=== PATIENT | male | born 1990 | race American Indian/Alaskan Native ===

== ENCOUNTER 2017-09-18 01:24 | Emergency (ER) | payer OTHER ==
[2017-09-18] MEDS ORDERED: GEODON IM ONE (01:45)
[2017-09-18] MEDS ORDERED: GEODON IM PRN (01:56)
[2017-09-18 02:28] LABS: Bilirubin,Urine NEG (Negative); Blood,Urine NEG (Negative); Color,Urine Yellow (Yellow); Hyaline Casts,Urine 3 /LPF; Mucus,Urine FEW /HPF
[2017-09-18 02:30] LABS: Benzodiazepines Screen,Urine PRESUMPTIVE NEGATIVE; Cannabinoid Screen,Urine PRESUMPTIVE NEGATIVE; Cocaine Screen,Urine PRESUMPTIVE NEGATIVE; Methadone Screen,Urine PRESUMPTIVE NEGATIVE; Opiate Screen,Urine PRESUMPTIVE NEGATIVE
[2017-09-18 02:30] LABS: Basophils % (Auto) 0.5 % (0.0-1.8); Eosinophils # (Auto) 0.1 K/mm3 (0.0-0.4); Eosinophils % (Auto) 2.6 % (0.0-4.3); Hematocrit 38.1 % (35.5-45.6); Hemoglobin 12.6 gm/dl (11.8-15.2); Lymphocytes # (Auto) 2.1 K/mm3 (1.2-5.4); Lymphocytes % (Auto) 39.3 % (13.4-35.0); Mean Corpuscular HGB Conc 33 % (32-34); Monocytes # (Auto) 0.4 K/mm3 (0.0-0.8); Platelet Count 198 K/mm3 (140-440); Red Blood Count 5.77 M/mm3 (3.65-5.03); Red Cell Distribution Width 14.3 % (13.2-15.2)
[2017-09-18 02:31] LABS: Mean Corpuscular Hemoglobin 22 pg (28-32); Mean Corpuscular Volume 66 fl (84-94)
[2017-09-18 02:40] LABS: Albumin 4.1 g/dL (3.9-5); Calcium 8.5 mg/dL (8.4-10.2)
[2017-09-18 02:52] LABS: Amphetamine Screen,Urine PRESUMPTIVE POSITIVE
--- NOTE | 2017-09-18 06:35 | Emergency Department Report ---
ED Psych HPI - General Chief Complaint: Psych Stated Complaint: SAMANTHA LÓPEZ Time Seen by Provider: 09/18/17 01:55 Source: patient Mode of arrival: Ambulatory Limitations: Altered Mental Status - History of Present Illness Initial Comments: Unnamed male brought in in acute state of severe psychomotor agitation, primarily stating that he has issues, and that he tries to control himself, but becomes increasingly agitated and describing his agitation, to the point that he is borderline violent, and patient was sedated with intramuscular Geodon before patient could become violent or destructive. No name was obtained, and patient was not of a sufficient mental state to give any significant past history. MD Complaint: altered mental status -: unknown Associated Psychiatric Symptoms: other (unable to determine due to patient agitation) - Related Data Home Medications Medication Instructions Recorded Confirmed Last Taken Unobtainable 09/18/17 09/18/17 Unknown Allergies Allergy/AdvReac Type Severity Reaction Status Date / Time Unable to Assess Allergy Unverified 09/18/17 01:59 ED Review of Systems ROS: Stated complaint: SAMANTHA LÓPEZ Other details as noted in HPI Comment: Unobtainable due to pts medical conditions ED Past Medical Hx - Past Medical History Additional medical history: Unable to determine any significant elements of patient's past history, either medical or psychiatric - Surgical History Additional Surgical History: unknown - Social History Smoking Status: Unknown if ever smoked - Medications Home Medications: Home Medications Medication Instructions Recorded Confirmed Last Taken Type Unobtainable 09/18/17 09/18/17 Unknown History ED Physical Exam - General Limitations: No Limitations, Altered Mental Status General appearance: in distress, other (extraordinarily agitated, almost violent ) - Head Head exam: Present: atraumatic, normocephalic - Eye Eye exam: Present: PERRL - ENT ENT exam: Present: normal exam - Neck Neck exam: Absent: tenderness - Respiratory Respiratory exam: Present: normal lung sounds bilaterally - Cardiovascular Cardiovascular Exam: Present: regular rate - GI/Abdominal GI/Abdominal exam: Present: soft - Rectal Rectal exam: Present: deferred - Extremities Exam Extremities exam: Present: normal inspection - Neurological Exam Neurological exam: Present: alert, other (quite agitated, unable to determine orientation, not cooperative with interview). Absent: motor sensory deficit - Psychiatric Psychiatric exam: Present: agitated (borderline violent) - Skin Skin exam: Present: warm, dry ED Course Vital Signs 09/18/17 02:05 Temperature 98.8 F Pulse Rate 106 H Respiratory 18 Rate Blood Pressure 90/60 [Left] O2 Sat by Pulse 96 Oximetry - Reevaluation(s) Reevaluation #1: 09/18/17 06:35 Patient resting more comfortably, sleeping on repeat examination one hour after Geodon injection - Consultations Consultation #1: 09/18/17 06:36 Psychiatric assessment counselor Edgar consulted at 0100 hrs., here to evaluate patient, to make initial arrangements for psychiatric transfer. 1013 confinement paper signed. ED Medical Decision Making - Lab Data Result diagrams: 09/18/17 02:14 09/18/17 02:14 - Medical Decision Making Patient is physiologically stable, has mild hypokalemia, but is negative for drugs of abuse, and is clearly agitated with altered mental status, and is likely acutely psychotic, and will require psychiatric hospitalization for his own care and protection. Patient is a significant risk for violent behavior, and will require additional sedation as necessary . - Differential Diagnosis substance abuse, acute psychosis Critical Care Time: No Critical care attestation.: If time is entered above; I have spent that time in minutes in the direct care of this critically ill patient, excluding procedure time. ED Disposition Disposition: [id number] PSY HOSP/PSY UNIT Is pt being admited?: No Does the pt Need Aspirin: No Condition: Stable Referrals: MICHELE PAUL MD [Primary Care Provider] - 3-5 Days
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
--- NOTE | 2017-09-19 13:30 | Progress Note ---
Subjective - Reason for Consult Consult date: 09/19/17 Reason for consult: Psychiatry Follow-up - Chief Complaint Chief complaint: "Hello" 26 y.o. AA male patient presented to the ER for aggressive behavior. Today the patient is calm and cooperative during the assessment. He stated that he feel a "little better" than yesterday. When asked about the argument that led to him being admitted to [facility], he could not elaborate. He stated that he wanted to lay back down because he was tired. He denies SI/HI's and AVH's. He denies any side effects of his medication. Mental Status Exam - Vital signs Last Vital Signs Temp 97.6 F 09/18/17 20:44 Pulse 76 09/18/17 20:44 Resp 16 09/18/17 20:44 BP 125/76 09/18/17 20:44 Pulse Ox 99 09/18/17 20:44 - Exam Narrative exam: MSE: Appearance: calm, cooperative Behavior: regular eye contact Speech: regular rate and tone Mood: "tired"" Affect: normal Thought Process: circumstantial Thought Content: denies SI/HI's and AVH's Motor Activity: ambulatory Cognition: A/O x 3 Insight: variable Judgment: variable Assessment and Plan Impression: Unspecified Mood DO. Hx of ADHD per the patient. Today the patient is calm and cooperative during the assessment. DDx: Bipolar DO Recommendation/Plan: Evaluate 1013 in 24 hours to determine proper dispo. Continue Zyprexa 5 mg PO HS for mood. Discussed possible metabolic side effects of Zyprexa with patient.
[2017-09-20 09:33] VITALS: BP 140/97
--- NOTE | 2017-09-20 17:23 | Progress Note ---
Subjective - Reason for Consult Reason for consult: mood disorder - Chief Complaint Chief complaint: Subjectively: At the current time patient denies acute SI HI or AVH. Patient appears future oriented. Patient is currently homeless and this is the predominant psychosocial stressor. Patient does know that he has some family in [place] that he can communicate. Otherwise, patient is willing to go to the longterm General Appearance: hospital gown, no acute distress Sensorium/Consciousness: alert and responding to external stimuli; clear Orientation: person, place, time and situation Eye Contact: fair Attitude / Behavior: cooperative Psychomotor & Musculoskeletal Activity: WNL Mood: ok Affect: euthymic Speech / Language: fluent, with normal rate/rhythm/tone Thought Processes: organized, logical, linear Thought Content: no SI/HI Perception: no AVH Insight: fair Judgement: fair Capacity for ADLs: independent Plan: Rescind 1013 provide outpatient prescription for Zyprexa at the current dose prescribed in the ER Provide referrals to longterm i is contacting [place] is not feasible Refer for community mental health services in [facility] Mental Status Exam - Vital signs Last Vital Signs Temp 97.7 F 09/20/17 09:32 Pulse 67 09/20/17 09:32 Resp 17 09/20/17 09:32 BP 140/97 09/20/17 09:32 Pulse Ox 97 09/20/17 09:32
--- NOTE | 2017-09-20 20:47 | Emergency Department Report ---
Blank Doc - Documentation Documentation: DR JACKSON CAME IN AND RESCINDED THE 1013. HE RECOMMENDED THE PT BE DC'D WITH ZYPREXA 5MG AND REFERRED TO [facility] IN [facility] AND REFERALS TO CORRECTION
== END 2017-09-20 21:14 | disposition home or self-care (01) ==
LOC: ED 01:24 → EEVIPCON 01:24 → EDBD 01:24 → ED 09-20 21:14
DX: R41.82 Altered mental status, unspecified (principal); R45.6 Violent behavior
CPT/HCPCS: 36415; 80053; 80307; 81001; 82140; 84443; 85025; 96372; 99285; G0480; J3486; 80320